=== PATIENT | female | born 1955 | race Caucasian/White ===

== ENCOUNTER 2022-06-17 11:11 | Inpatient (IN) | payer MEDICAID ==
[~2022-06-17] VITALS: Ht 154.9 cm; Wt 67.6 kg
[2022-06-17] MEDS ORDERED: ALBUTEROL (0.083%) 2.5MG/3ML NEB HHN ONE (13:00)
[2022-06-17 13:15] LABS: EOSINOPHILS % 3.3 % (0.0-5.0); HEMOGLOBIN. 11.4 g/dL (12.0-16.0); LYMPHOCYTES % 13.2 % (20.0-50.0); MEAN CORPUSCULAR HEMOGLOBIN 25.9 pg (28.0-32.0); MEAN CORPUSCULAR VOLUME 79.1 fL (81.0-99.0); MEAN PLATELET VOLUME 9.5 fl (7.4-10.4); MONOCYTES % 7.5 % (2.0-8.0); PLATELET 320 x1000/uL (130-400); RED BLOOD CELL COUNT 4.42 mill/uL (4.2-5.4); RED CELL DISTRIBUTION WIDTH 14.5 % (11.6-14.6)
[2022-06-17 13:18] LABS: CHLORIDE 103 mEq/L (98-107)
[2022-06-17] MEDS ORDERED: NITROGLYCERIN OINT 1GM/INCH UDPKT TD NR (15:15)
[2022-06-17] MEDS ORDERED: FUROSEMIDE 40MG/4ML VIAL IV NR (15:15)
[2022-06-17] MEDS: ALBUTEROL (0.083%) 2.5MG/3ML NEB HHN SCH ×2 (15:30→20:19)
[2022-06-17] MEDS ORDERED: CARVEDILOL 6.25 MG TABLET PO ONE (18:45)
[2022-06-17] MEDS ORDERED: FUROSEMIDE 20MG/2ML VIAL IVP ONE (18:45)
[2022-06-17] MEDS ORDERED: MAGNESIUM/ALUMINUM HYDROXIDE/SIMETHICONE 30ML UDC PO PRN (21:15)
[2022-06-17] MEDS ORDERED: ONDANSETRON HCL 4MG/2ML INJ IV PRN (21:15)
[2022-06-17] MEDS ORDERED: IPRATROPIUM/ALBUTEROL 0.5-3(2.5)MG/3ML NEB NEB PRN (21:15)
[2022-06-17] MEDS ORDERED: CLONIDINE 0.1MG TABLET PO PRN (21:15)
[2022-06-17] MEDS ORDERED: ACETAMINOPHEN 325MG TABLET PO PRN ×2 (21:15)
[2022-06-17] MEDS ORDERED: HYDROCODONE/ACETAMINOPHEN 5/325MG TABLET PO PRN (21:15)
[2022-06-17] MEDS: ENOXAPARIN 40MG/0.4ML SYR SUBCUT SCH (21:55)
[2022-06-17 22:35] VITALS: BP_SYST 142; BP_SYST 143; BP_DIAS 83
[2022-06-18] VITALS: BP 141/71
[2022-06-18] MEDS ORDERED: DEXTROSE 50% WATER 50ML SYRINGE IV PRN (00:15)
[2022-06-18] MEDS: BLOOD SUGAR DIAGNOSTIC STRIP TEST SCH ×5 (01:17→21:00)
[2022-06-18] MEDS: INSULIN LISPRO 100 UNITS/ML SUBCUT SCH ×6 (01:25→21:57)
[2022-06-18] MEDS: GUAIFENESIN 200MG/10ML SUGAR FREE UDC PO PRN ×2 (01:30→16:45)
[2022-06-18] MEDS: AMLODIPINE 5MG TABLET PO SCH ×2 (01:54→08:32)
[2022-06-18 04:00] VITALS: BP 121/54
[2022-06-18 05:47] LABS: BASOPHILS % 0.7 % (0.0-2.0); EOSINOPHILS % 6.4 % (0.0-5.0); HEMATOCRIT. 32.3 % (36.0-48.0); HEMOGLOBIN. 10.8 g/dL (12.0-16.0); LYMPHOCYTES % 34.4 % (20.0-50.0); MEAN CORPUSCULAR HEMOGLOBIN 26.6 pg (28.0-32.0); MEAN CORPUSCULAR VOLUME 79.3 fL (81.0-99.0); MEAN PLATELET VOLUME 9.6 fl (7.4-10.4); MONOCYTES % 11.1 % (2.0-8.0); NEUTROPHILS % 47.4 % (40.0-76.0); PLATELET 291 x1000/uL (130-400); RED BLOOD CELL COUNT 4.07 mill/uL (4.2-5.4); RED CELL DISTRIBUTION WIDTH 14.5 % (11.6-14.6)
[2022-06-18] MEDS ORDERED: FAMO-287 MT (05:56)
[2022-06-18] MEDS ORDERED: ALBU4TAB6 INH (05:58)
[2022-06-18 06:36] LABS: FOLIC ACID (FOLATE) SERUM >20 ng/mL ng/mL (>5.38); VITAMIN B12 SERUM 984 pg/mL (211-911)
[2022-06-18 06:39] LABS: PHOSPHORUS 4.3 mg/dL (2.5-4.9); T4 FREE 1.32 ng/dL (0.76-1.46)
[2022-06-18 08:00] VITALS: BP 135/65
[2022-06-18] MEDS: LISINOPRIL 5MG TABLET PO SCH (08:32)
[2022-06-18] MEDS: FUROSEMIDE 20MG/2ML VIAL IVP SCH (08:32)
[2022-06-18] MEDS ORDERED: NALOXONE HCL 0.4MG/ML VIAL IV PRN (09:15)
[2022-06-18] MEDS ORDERED: POTASSIUM CHLORIDE 20MEQ TABLET SR PO NR (09:15)
[2022-06-18] MEDS: CLOPIDOGREL 75MG TABLET PO SCH (11:16)
[2022-06-18 12:00] VITALS: BP 109/55
[2022-06-18 12:50] LABS: FERRITIN 81 ng/mL (10-291)
[2022-06-18 16:00] VITALS: BP 118/43
[2022-06-18 18:38] LABS: CREATINE KINASE MB FRACTION 1.1 ng/mL (0.5-3.6)
[2022-06-18 20:00] VITALS: BP 140/71
[2022-06-18] MEDS ORDERED: ATORVASTATIN CALCIUM 40MG TABLET PO SCH (21:00)
[2022-06-18] MEDS: ENOXAPARIN 40MG/0.4ML SYR SUBCUT SCH (21:54)
[2022-06-18] MEDS ORDERED: INSULIN GLARGINE 100 UNITS/ML SUBCUT SCH (22:00)
[2022-06-19] VITALS: BP 150/71
[2022-06-19 01:11] LABS: CREATINE KINASE MB FRACTION 1.5 ng/mL (0.5-3.6)
[2022-06-19 04:00] VITALS: BP 128/69
[2022-06-19] MEDS: BLOOD SUGAR DIAGNOSTIC STRIP TEST SCH ×3 (05:59→17:10)
[2022-06-19 06:24] LABS: CHLORIDE 103 mEq/L (98-107)
[2022-06-19 06:25] LABS: BASOPHILS % 0.8 % (0.0-2.0); EOSINOPHILS % 8.1 % (0.0-5.0); HEMATOCRIT. 32.2 % (36.0-48.0); HEMOGLOBIN. 10.8 g/dL (12.0-16.0); LYMPHOCYTES % 39.6 % (20.0-50.0); MEAN CORPUSCULAR HEMOGLOBIN 26.6 pg (28.0-32.0); MEAN CORPUSCULAR VOLUME 79.2 fL (81.0-99.0); MONOCYTES % 10.1 % (2.0-8.0); NEUTROPHILS % 41.4 % (40.0-76.0); PLATELET 273 x1000/uL (130-400); RED BLOOD CELL COUNT 4.07 mill/uL (4.2-5.4); RED CELL DISTRIBUTION WIDTH 14.3 % (11.6-14.6)
[2022-06-19] MEDS: INSULIN LISPRO 100 UNITS/ML SUBCUT SCH ×6 (06:37→17:40)
[2022-06-19 06:39] LABS: CREATINE KINASE 66 IU/L (26-192); CREATINE KINASE MB FRACTION 1.7 ng/mL (0.5-3.6)
[2022-06-19 08:00] VITALS: BP 134/51
[2022-06-19] MEDS: CLOPIDOGREL 75MG TABLET PO SCH (08:04)
[2022-06-19] MEDS: FUROSEMIDE 20MG/2ML VIAL IVP SCH (08:04)
[2022-06-19] MEDS: LISINOPRIL 5MG TABLET PO SCH (08:04)
[2022-06-19] MEDS: AMLODIPINE 5MG TABLET PO SCH (08:04)
[2022-06-19] MEDS: GUAIFENESIN 200MG/10ML SUGAR FREE UDC PO PRN (08:12)
[2022-06-19] MEDS ORDERED: SYRI-219 ×2 (11:42→11:43)
[2022-06-19] MEDS ORDERED: FURO20TA4 PO (11:43)
[2022-06-19] MEDS ORDERED: EMPA10TA PO (11:43)
[2022-06-19] MEDS ORDERED: LISI10TA26 PO (11:44)
[2022-06-19] MEDS ORDERED: MONT-39 PO (11:44)
[2022-06-19] MEDS ORDERED: CARV3.1242 PO (11:44)
[2022-06-19] MEDS ORDERED: ALBU6.7H3 ORI ×4 (11:46→15:10)
[2022-06-19 12:00] VITALS: BP 130/64
[2022-06-19] MEDS ORDERED: LEVO-65 PO ×4 (12:16→15:10)
[2022-06-19] MEDS ORDERED: LEVOFLOXACIN 500MG PREMIX 100 ML IV SCH (14:00)
[2022-06-19 14:43] VITALS: BP 130/64
[2022-06-19] MEDS ORDERED: GUAI-741 MT (15:10)
[2022-06-19] MEDS ORDERED: AZIT500T8 MT (15:18)
[2022-06-19] MEDS ORDERED: AMOX1TAB16 MT (15:18)
[2022-06-19] MEDS ORDERED: AMOXICILLIN/POTASSIUM CLAVULANATE 875/125MG TAB PO NR (15:30)
[2022-06-19] MEDS ORDERED: AZITHROMYCIN 500 MG TABLET PO NR (15:30)
[2022-06-19 16:00] VITALS: BP 132/66
[2022-06-19 16:25] LABS: CLARITY URINE CLEAR (CLEAR); COLOR URINE YELLOW (YELLOW); KETONES URINE NEGATIVE (NEGATIVE); LEUKOCYTE ESTERASE URINE NEGATIVE (NEGATIVE); NITRITE URINE NEGATIVE (NEGATIVE); OCCULT BLOOD URINE NEGATIVE (NEGATIVE); PH URINE 6.5 (4.5-8.0); PROTEIN URINE 1+ (NEGATIVE); SPECIFIC GRAVITY URINE 1.009 (1.005-1.030); UROBILINOGEN URINE 0.2 E.U./dL (0.2-1.0)
[2022-06-20] MEDS ORDERED: FERROUS SULFATE 325MG TABLET PO SCH (09:00)
[2022-06-20] MEDS ORDERED: LEVOFLOXACIN 250MG PREMIX 50 ML IV SCH (11:00)
== END 2022-06-19 17:30 | disposition home or self-care (01) | DRG 194 ==
LOC: ER 13:50 → 8WST 16:16 → SUPCPDRO 17:46 → ENRESERV 21:58
PROVIDERS: ADMIT Internal Medicine; ATTEND Internal Medicine
DX: I11.0 Hypertensive heart disease with heart failure (principal); E44.1 Mild protein-calorie malnutrition; J45.901 Unspecified asthma with (acute) exacerbation; E11.65 Type 2 diabetes mellitus with hyperglycemia; D50.9 Iron deficiency anemia, unspecified; I25.110 Atherosclerotic heart disease of native coronary artery with unstable angina pectoris; Z20.822 Contact with and (suspected) exposure to COVID-19; I50.31 Acute diastolic (congestive) heart failure; D72.829 Elevated white blood cell count, unspecified; E87.6 Hypokalemia; E78.5 Hyperlipidemia, unspecified; I44.4 Left anterior fascicular block; Z79.4 Long term (current) use of insulin; Z86.73 Personal history of transient ischemic attack (TIA), and cerebral infarction without residual deficits; Z82.49 Family history of ischemic heart disease and other diseases of the circulatory system; Z83.3 Family history of diabetes mellitus; Z79.899 Other long term (current) drug therapy; Z68.28 Body mass index [BMI] 28.0-28.9, adult
CPT/HCPCS: 36415; 71045; 80048; 80053; 80061; 81003; 82306; 82550; 82553; 82607; 82728; 82746; 82962; 83036; 83540; 83550; 83735; 83880; 83970; 84100; 84145; 84439; 84443; 84484; 85025; 85379; 87426; 87804; 93005; 93306; 93970; 99285; C9803; J1650; J1815; J1940; J1956

== ENCOUNTER 2022-06-25 21:15 | Inpatient (IN) | payer MEDICAID ==
[~2022-06-25] VITALS: Ht 157.5 cm; Wt 64.9 kg
[~2022-06-25 21:15] MED LIST: ALBU4TAB6 INH; ALBU6.7H3 ORI; AMOX1TAB16 MT; AZIT500T8 MT; CARV3.1242 PO; EMPA10TA PO; FAMO-287 MT; FURO20TA4 PO; GUAI-741 MT; LISI10TA26 PO; MONT-39 PO; SYRI-219
[2022-06-25] MEDS ORDERED: MORPHINE SULFATE 4 MG/ML CPJ (NOT FOR IM USE) IV NR (22:30)
[2022-06-25] MEDS ORDERED: ASPIRIN 325MG EC TABLET PO NR (22:30)
[2022-06-25] MEDS ORDERED: NITROGLYCERIN OINT 1GM/INCH UDPKT TD NR (22:30)
[2022-06-25 23:03] LABS: BASOPHILS % 0.6 % (0.0-2.0); EOSINOPHILS % 4.4 % (0.0-5.0); HEMATOCRIT. 33.5 % (36.0-48.0); HEMOGLOBIN. 11.1 g/dL (12.0-16.0); LYMPHOCYTES % 15.5 % (20.0-50.0); MEAN CORPUSCULAR HEMOGLOBIN 26.4 pg (28.0-32.0); MEAN CORPUSCULAR VOLUME 79.7 fL (81.0-99.0); MEAN PLATELET VOLUME 9.5 fl (7.4-10.4); MONOCYTES % 5.1 % (2.0-8.0); NEUTROPHILS % 74.4 % (40.0-76.0); PLATELET 273 x1000/uL (130-400); RED CELL DISTRIBUTION WIDTH 14.5 % (11.6-14.6)
[2022-06-25 23:10] LABS: CHLORIDE 105 mEq/L (98-107)
[2022-06-25 23:23] LABS: ETHANOL BLOOD < 10 mg/dL
[2022-06-25] MEDS ORDERED: FUROSEMIDE 40MG/4ML VIAL IVP NR (23:45)
[2022-06-26] MEDS ORDERED: ONDANSETRON HCL 4MG/2ML INJ IV ONE (00:45)
[2022-06-26 01:13] LABS: CLARITY URINE CLEAR (CLEAR); COLOR URINE YELLOW (YELLOW); KETONES URINE NEGATIVE (NEGATIVE); LEUKOCYTE ESTERASE URINE NEGATIVE (NEGATIVE); NITRITE URINE NEGATIVE (NEGATIVE); OCCULT BLOOD URINE NEGATIVE (NEGATIVE); PH URINE 5.5 (4.5-8.0); PROTEIN URINE 1+ (NEGATIVE); SPECIFIC GRAVITY URINE 1.009 (1.005-1.030); UROBILINOGEN URINE 0.2 E.U./dL (0.2-1.0)
[2022-06-26 01:46] LABS: *AMPHETAMINES SCREEN URINE NEGATIVE (NEGATIVE); *BARBITURATES SCREEN URINE NEGATIVE (NEGATIVE); *BENZODIAZEPINES SCREEN URINE NEGATIVE (NEGATIVE); *COCAINE SCREEN URINE NEGATIVE (NEGATIVE); CANNABINOID URINE SCREEN NEGATIVE (NEGATIVE); METHADONE URINE SCREEN NEGATIVE (NEGATIVE); OPIATES URINE SCREEN PRESUMTIVE POSITIVE (NEGATIVE); PHENCYCLIDINE URINE SCREEN NEGATIVE (NEGATIVE)
[2022-06-26 10:28] VITALS: BP 131/68
[2022-06-26] MEDS ORDERED: CLONIDINE 0.1MG TABLET PO PRN (11:30)
[2022-06-26] MEDS ORDERED: ACETAMINOPHEN 325MG TABLET PO PRN ×2 (11:30)
[2022-06-26] MEDS ORDERED: IPRATROPIUM/ALBUTEROL 0.5-3(2.5)MG/3ML NEB NEB PRN (11:30)
[2022-06-26] MEDS ORDERED: ONDANSETRON HCL 4MG/2ML INJ IV PRN (11:30)
[2022-06-26] MEDS ORDERED: MAGNESIUM/ALUMINUM HYDROXIDE/SIMETHICONE 30ML UDC PO PRN (11:30)
[2022-06-26] MEDS ORDERED: HYDROCODONE/ACETAMINOPHEN 5/325MG TABLET PO PRN (11:30)
[2022-06-26] MEDS ORDERED: NALOXONE HCL 0.4MG/ML VIAL IV PRN (11:45)
[2022-06-26 12:00] VITALS: BP 136/49
[2022-06-26] MEDS: IPRATROPIUM/ALBUTEROL 0.5-3(2.5)MG/3ML NEB NEB SCH ×2 (12:08→20:29)
[2022-06-26] MEDS: ENOXAPARIN 40MG/0.4ML SYR SUBCUT SCH (12:12)
[2022-06-26] MEDS: FUROSEMIDE 20MG TABLET PO SCH (14:28)
[2022-06-26 16:00] VITALS: BP 134/68
[2022-06-26] MEDS: LISINOPRIL 10MG TABLET PO SCH (16:20)
[2022-06-26] MEDS ORDERED: INSU100I28 SQ (16:50)
[2022-06-26] MEDS ORDERED: INSLIS SUBCUT (16:50)
[2022-06-26] MEDS ORDERED: INSULIN LISPRO 100 UNITS/ML SUBCUT SCH ×3 (18:45→21:00)
[2022-06-26] MEDS ORDERED: DEXTROSE 50% WATER 50ML SYRINGE IV PRN ×2 (19:00)
[2022-06-26 20:00] VITALS: BP 152/73
[2022-06-26 20:29] LABS: CREATINE KINASE MB FRACTION 1.9 ng/mL (0.5-3.6)
[2022-06-26] MEDS ORDERED: BLOOD SUGAR DIAGNOSTIC STRIP TEST SCH (21:00)
[2022-06-26] MEDS: GUAIFENESIN 200MG/10ML SUGAR FREE UDC PO PRN (21:34)
[2022-06-26] MEDS: FAMOTIDINE 20MG TABLET PO SCH (21:35)
[2022-06-26] MEDS: MONTELUKAST SODIUM 10MG TABLET PO SCH (21:35)
[2022-06-26] MEDS: CARVEDILOL 3.125 MG TABLET PO SCH (21:36)
[2022-06-26] MEDS: BLOOD SUGAR DIAGNOSTIC STRIP TEST SCH (21:37)
[2022-06-26] MEDS: INSULIN LISPRO 100 UNITS/ML SUBCUT SCH (21:37)
[2022-06-26] MEDS ORDERED: INSULIN GLARGINE 100 UNITS/ML SUBCUT SCH ×2 (22:00)
[2022-06-27] VITALS: BP 119/50
[2022-06-27] MEDS: IPRATROPIUM/ALBUTEROL 0.5-3(2.5)MG/3ML NEB NEB SCH ×4 (00:44→19:54)
[2022-06-27 01:42] LABS: CREATINE KINASE MB FRACTION 1.4 ng/mL (0.5-3.6)
[2022-06-27 04:00] VITALS: BP 105/58
[2022-06-27] MEDS: INSULIN LISPRO 100 UNITS/ML SUBCUT SCH ×4 (06:28→22:27)
[2022-06-27] MEDS: BLOOD SUGAR DIAGNOSTIC STRIP TEST SCH ×4 (06:28→21:00)
[2022-06-27 06:43] LABS: BASOPHILS % 0.9 % (0.0-2.0); EOSINOPHILS % 11.3 % (0.0-5.0); HEMATOCRIT. 30.1 % (36.0-48.0); HEMOGLOBIN. 10.1 g/dL (12.0-16.0); LYMPHOCYTES % 36.3 % (20.0-50.0); MEAN CORPUSCULAR HEMOGLOBIN 26.8 pg (28.0-32.0); MEAN CORPUSCULAR VOLUME 79.7 fL (81.0-99.0); MEAN PLATELET VOLUME 9.7 fl (7.4-10.4); MONOCYTES % 9.9 % (2.0-8.0); NEUTROPHILS % 41.6 % (40.0-76.0); PLATELET 279 x1000/uL (130-400); RED BLOOD CELL COUNT 3.78 mill/uL (4.2-5.4)
[2022-06-27 06:50] LABS: CHLORIDE 109 mEq/L (98-107)
[2022-06-27 07:02] LABS: CREATINE KINASE 44 IU/L (26-192); CREATINE KINASE MB FRACTION 1.4 ng/mL (0.5-3.6)
[2022-06-27 08:00] VITALS: BP 141/63
[2022-06-27] MEDS: FUROSEMIDE 20MG TABLET PO SCH (08:25)
[2022-06-27] MEDS: CARVEDILOL 3.125 MG TABLET PO SCH ×2 (08:25→22:26)
[2022-06-27] MEDS: LISINOPRIL 10MG TABLET PO SCH ×2 (08:25→16:41)
[2022-06-27] MEDS: FAMOTIDINE 20MG TABLET PO SCH ×2 (08:25→22:26)
[2022-06-27] MEDS: ENOXAPARIN 40MG/0.4ML SYR SUBCUT SCH (08:25)
[2022-06-27] MEDS: DOCUSATE SODIUM 100MG CAPSULE PO PRN (11:48)
[2022-06-27 12:00] VITALS: BP 125/53
[2022-06-27 16:00] VITALS: BP 144/58
[2022-06-27] MEDS: BUDESONIDE 0.5MG/2ML NEB HHN SCH (19:54)
[2022-06-27 20:00] VITALS: BP 157/67
[2022-06-27] MEDS: GUAIFENESIN 200MG/10ML SUGAR FREE UDC PO PRN (22:25)
[2022-06-27] MEDS: MONTELUKAST SODIUM 10MG TABLET PO SCH (22:25)
[2022-06-27] MEDS: FLUTICASONE PROPIONATE 50MCG/SPRAY BOTTLE BOTHNSTRLS SCH (22:27)
[2022-06-28] VITALS: BP 123/60
[2022-06-28] MEDS: IPRATROPIUM/ALBUTEROL 0.5-3(2.5)MG/3ML NEB NEB SCH ×4 (02:11→20:50)
[2022-06-28 04:00] VITALS: BP 121/71
[2022-06-28 06:20] LABS: BASOPHILS % 0.9 % (0.0-2.0); EOSINOPHILS % 8.8 % (0.0-5.0); HEMOGLOBIN. 9.8 g/dL (12.0-16.0); LYMPHOCYTES % 27.1 % (20.0-50.0); MEAN CORPUSCULAR HEMOGLOBIN 26.9 pg (28.0-32.0); MEAN CORPUSCULAR VOLUME 79.7 fL (81.0-99.0); MONOCYTES % 10.6 % (2.0-8.0); NEUTROPHILS % 52.6 % (40.0-76.0); PLATELET 258 x1000/uL (130-400); RED BLOOD CELL COUNT 3.64 mill/uL (4.2-5.4); RED CELL DISTRIBUTION WIDTH 14.4 % (11.6-14.6)
[2022-06-28] MEDS: INSULIN LISPRO 100 UNITS/ML SUBCUT SCH ×4 (06:26→21:20)
[2022-06-28] MEDS: BLOOD SUGAR DIAGNOSTIC STRIP TEST SCH ×4 (06:26→21:19)
[2022-06-28 07:28] LABS: CHLORIDE 109 mEq/L (98-107)
[2022-06-28 08:00] VITALS: BP 146/73
[2022-06-28] MEDS: BUDESONIDE 0.5MG/2ML NEB HHN SCH ×2 (08:43→16:45)
[2022-06-28] MEDS: FAMOTIDINE 20MG TABLET PO SCH ×2 (09:31→20:58)
[2022-06-28] MEDS: CARVEDILOL 3.125 MG TABLET PO SCH ×2 (09:31→20:57)
[2022-06-28] MEDS: LISINOPRIL 10MG TABLET PO SCH ×2 (09:31→18:20)
[2022-06-28] MEDS: FUROSEMIDE 20MG TABLET PO SCH (09:31)
[2022-06-28] MEDS: FLUTICASONE PROPIONATE 50MCG/SPRAY BOTTLE BOTHNSTRLS SCH ×2 (09:34→20:58)
[2022-06-28] MEDS: DOCUSATE SODIUM 100MG CAPSULE PO PRN (09:38)
[2022-06-28 11:49] LABS: PROTHROMBIN TIME 10.8 sec (9.6-11.0)
[2022-06-28 12:00] VITALS: BP 138/67
[2022-06-28] MEDS ORDERED: MAGNESIUM HYDROXIDE 400MG/5ML 30ML UDC PO ONE (12:30)
[2022-06-28] MEDS ORDERED: LACTULOSE 20G/30ML UDC PO NR (12:45)
[2022-06-28 16:00] VITALS: BP 124/67
[2022-06-28] MEDS ORDERED: FUROSEMIDE 40MG/4ML VIAL IVP NR (17:45)
[2022-06-28 19:05] LABS: BG CARBOXYHEMOGLOBIN 0.3 % (0.5-1.5); BG DEOXYHEMOGLOBIN 2.5 % (0.0-5.0); BG FRACTION INSPIRED OXYGEN 26; BG METHEMOGLOBIN 0.2 % (0.0-1.5); BG OXYGEN SATURATION 97.5 % (92.0-98.5); BG PCO2 42.6 mmHg (35.0-45.0); BG PH 7.403 (7.350-7.450); BG PO2 106.5 mmHg (75.0-100.0); BG SAMPLE SITE LEFT BRACHIAL; BG TOTAL HEMOGLOBIN 11.7 g/dL (12.0-18.0); BG VENT MODE NASAL CANNULA
[2022-06-28 20:00] VITALS: BP 144/63
[2022-06-28] MEDS: GUAIFENESIN 200MG/10ML SUGAR FREE UDC PO PRN (20:57)
[2022-06-28] MEDS: MONTELUKAST SODIUM 10MG TABLET PO SCH (20:58)
[2022-06-29] VITALS: BP 120/59
[2022-06-29] MEDS: IPRATROPIUM/ALBUTEROL 0.5-3(2.5)MG/3ML NEB NEB SCH ×4 (01:19→20:26)
[2022-06-29 04:00] VITALS: BP 141/70
[2022-06-29] MEDS: INSULIN LISPRO 100 UNITS/ML SUBCUT SCH ×4 (06:17→21:53)
[2022-06-29] MEDS: BLOOD SUGAR DIAGNOSTIC STRIP TEST SCH ×4 (06:17→21:49)
[2022-06-29 08:00] VITALS: BP 154/75
[2022-06-29] MEDS: FUROSEMIDE 20MG TABLET PO SCH (10:03)
[2022-06-29] MEDS: FAMOTIDINE 20MG TABLET PO SCH ×2 (10:03→21:49)
[2022-06-29] MEDS: FLUTICASONE PROPIONATE 50MCG/SPRAY BOTTLE BOTHNSTRLS SCH ×2 (10:03→21:49)
[2022-06-29] MEDS: CARVEDILOL 3.125 MG TABLET PO SCH ×2 (10:03→21:49)
[2022-06-29] MEDS: LISINOPRIL 10MG TABLET PO SCH ×2 (10:04→17:07)
[2022-06-29] MEDS: GUAIFENESIN 200MG/10ML SUGAR FREE UDC PO PRN (10:11)
[2022-06-29 11:29] LABS: BASOPHILS % 0.9 % (0.0-2.0); EOSINOPHILS % 8.2 % (0.0-5.0); HEMATOCRIT. 32.9 % (36.0-48.0); HEMOGLOBIN. 10.9 g/dL (12.0-16.0); LYMPHOCYTES % 30.9 % (20.0-50.0); MEAN CORPUSCULAR HEMOGLOBIN 26.5 pg (28.0-32.0); MEAN CORPUSCULAR VOLUME 79.8 fL (81.0-99.0); MEAN PLATELET VOLUME 10.1 fl (7.4-10.4); MONOCYTES % 10.2 % (2.0-8.0); NEUTROPHILS % 49.8 % (40.0-76.0); PLATELET 301 x1000/uL (130-400); RED BLOOD CELL COUNT 4.13 mill/uL (4.2-5.4); RED CELL DISTRIBUTION WIDTH 14.3 % (11.6-14.6)
[2022-06-29 11:56] LABS: CHLORIDE 106 mEq/L (98-107)
[2022-06-29 12:00] VITALS: BP 151/74
[2022-06-29] MEDS: DILTIAZEM HCL 30MG TABLET PO SCH ×2 (13:11→21:49)
[2022-06-29 16:00] VITALS: BP 123/52
[2022-06-29] MEDS: BENZONATATE 100MG CAPSULE PO SCH (17:07)
[2022-06-29 20:00] VITALS: BP 153/78
[2022-06-29] MEDS: BUDESONIDE 0.5MG/2ML NEB HHN SCH (20:26)
[2022-06-29] MEDS: MONTELUKAST SODIUM 10MG TABLET PO SCH (21:50)
[2022-06-30] VITALS: BP 100/61
[2022-06-30] MEDS: BENZONATATE 100MG CAPSULE PO SCH ×3 (02:00→17:07)
[2022-06-30] MEDS: IPRATROPIUM/ALBUTEROL 0.5-3(2.5)MG/3ML NEB NEB SCH ×3 (04:05→15:14)
[2022-06-30 04:20] VITALS: BP 135/69
[2022-06-30] MEDS: BLOOD SUGAR DIAGNOSTIC STRIP TEST SCH ×3 (06:24→17:07)
[2022-06-30] MEDS: DILTIAZEM HCL 30MG TABLET PO SCH ×2 (06:26→12:17)
[2022-06-30] MEDS: INSULIN LISPRO 100 UNITS/ML SUBCUT SCH ×3 (06:49→17:11)
[2022-06-30 07:40] LABS: BASOPHILS % 1.2 % (0.0-2.0); EOSINOPHILS % 8.1 % (0.0-5.0); HEMATOCRIT. 29.8 % (36.0-48.0); HEMOGLOBIN. 10.1 g/dL (12.0-16.0); LYMPHOCYTES % 30.6 % (20.0-50.0); MEAN CORPUSCULAR HEMOGLOBIN 26.9 pg (28.0-32.0); MEAN CORPUSCULAR VOLUME 79.4 fL (81.0-99.0); MEAN PLATELET VOLUME 10.2 fl (7.4-10.4); NEUTROPHILS % 49.1 % (40.0-76.0); PLATELET 275 x1000/uL (130-400); RED BLOOD CELL COUNT 3.75 mill/uL (4.2-5.4); RED CELL DISTRIBUTION WIDTH 14.3 % (11.6-14.6)
[2022-06-30 08:00] VITALS: BP 130/44
[2022-06-30 08:04] LABS: CHLORIDE 104 mEq/L (98-107)
[2022-06-30] MEDS: FLUTICASONE PROPIONATE 50MCG/SPRAY BOTTLE BOTHNSTRLS SCH (08:22)
[2022-06-30] MEDS: FAMOTIDINE 20MG TABLET PO SCH (08:22)
[2022-06-30] MEDS: CARVEDILOL 3.125 MG TABLET PO SCH (08:22)
[2022-06-30] MEDS: LISINOPRIL 10MG TABLET PO SCH ×2 (08:22→17:07)
[2022-06-30] MEDS ORDERED: FUROSEMIDE 40MG/4ML VIAL IVP SCH ×2 (09:00)
[2022-06-30] MEDS: BUDESONIDE 0.5MG/2ML NEB HHN SCH (09:01)
[2022-06-30 12:00] VITALS: BP 143/75
[2022-06-30] MEDS ORDERED: IOHEXOL-350 100 ML BOTTLE ONE (13:35)
[2022-06-30 16:00] VITALS: BP 147/66
== END 2022-06-30 19:00 | disposition left against medical advice (07) | DRG 133 ==
LOC: ER 21:15 → 8WST 06-26 00:37 → EDBEDREQTM 06-26 00:38 → EDBEDREQ 06-26 00:38
PROVIDERS: ADMIT Internal Medicine; ATTEND Internal Medicine
DX: J96.01 Acute respiratory failure with hypoxia (principal); I50.33 Acute on chronic diastolic (congestive) heart failure; D72.10 Eosinophilia, unspecified; I24.9 Acute ischemic heart disease, unspecified; M47.12 Other spondylosis with myelopathy, cervical region; I27.20 Pulmonary hypertension, unspecified; I25.110 Atherosclerotic heart disease of native coronary artery with unstable angina pectoris; I11.0 Hypertensive heart disease with heart failure; J45.901 Unspecified asthma with (acute) exacerbation; D50.9 Iron deficiency anemia, unspecified; E11.65 Type 2 diabetes mellitus with hyperglycemia; Z20.822 Contact with and (suspected) exposure to COVID-19; D35.02 Benign neoplasm of left adrenal gland; J84.9 Interstitial pulmonary disease, unspecified; M48.02 Spinal stenosis, cervical region; E78.00 Pure hypercholesterolemia, unspecified; R26.9 Unspecified abnormalities of gait and mobility; K59.00 Constipation, unspecified; H54.62 Unqualified visual loss, left eye, normal vision right eye; K21.9 Gastro-esophageal reflux disease without esophagitis; J98.11 Atelectasis; Z53.29 Procedure and treatment not carried out because of patient's decision for other reasons; M54.12 Radiculopathy, cervical region; Z86.73 Personal history of transient ischemic attack (TIA), and cerebral infarction without residual deficits; I25.2 Old myocardial infarction; Z83.3 Family history of diabetes mellitus; Z82.49 Family history of ischemic heart disease and other diseases of the circulatory system; Z79.4 Long term (current) use of insulin; Z98.61 Coronary angioplasty status
CPT/HCPCS: 36415; 36600; 71045; 71250; 72141; 75571; 80053; 80305; 80320; 81003; 82375; 82550; 82553; 82805; 82962; 83605; 83880; 84145; 84484; 85025; 86850; 86900; 87426; 87804; 93005; 94640; 97162; 99285; C9803; J1650; J1815; J1940; J2270; J2405; J7626; Q9967; G0480